=== PATIENT | male | born 1950 | race Hispanic/Latino ===

== ENCOUNTER → 2017-06-19 | Outpatient (CLI) | payer OTHER, MEDICARE | END | disposition home or self-care (01) | LOC: SHCH 10:25 | PROVIDERS: ATTEND Internal Medicine Cardiovascular Disease | DX: Z95.0 Presence of cardiac pacemaker (principal); I51.7 Cardiomegaly | CPT/HCPCS: 93306 ==

== ENCOUNTER 2017-12-25 07:30 | Day surgery (SDC) | payer OTHER, MEDICARE ==
[2017-12-21 11:30] VITALS: BP 96/61
[2017-12-21 11:36] LABS: BASOPHILS % (AUTO) 0.9 % (0.0-5.0); EOSINOPHILS % (AUTO) 4.2 % (0.0-8.0); HEMATOCRIT 37.1 % (42-54); LYMPHOCYTES % (AUTO) 11.6 % (21.0-51.0); MEAN CORPUSCULAR HEMOGLOBIN 27.9 pg (27.0-33.0); MEAN CORPUSCULAR HGB CONC 33.4 g/dL (32.0-36.0); MEAN CORPUSCULAR VOLUME 83.5 fL (79-99); MONOCYTES % (AUTO) 6.8 % (3.0-13.0); NEUTROPHILS % (AUTO) 76.5 % (40.0-77.0); NUCLEATED RED BLOOD CELLS 0.1 % (0.0-0.19); PLATELET COUNT (AUTO) 144 K/uL (130-400); RED BLOOD CELL COUNT(AUTO) 4.44 MIL/uL (4.50-6.20); RED CELL DISTRIBUTION WIDTH 16.8 % (11.0-15.5); WHITE BLOOD COUNT (AUTO) 7.4 K/uL (4.8-10.8)
[2017-12-21 11:43] LABS: CREATININE 1.7 mg/dL (0.5-1.5)
[2017-12-21 11:58] LABS: INR 2.44 (0.85-1.15); PARTIAL THROMBOPLASTIN TIME 39.5 SEC (26.3-35.5); PROTHROMBIN TIME 25.2 SEC (9.6-11.6)
[~2017-12-25] VITALS: Ht 172.7 cm; Wt 74.9 kg
[2017-12-25] VITALS (11 sets, daily range): BP systolic 96–115; BP diastolic 58–65
[~2017-12-25 07:30] MED LIST: AMLO10TA6 PO; CARV25TA PO; CEFAZOLIN SODIUM 1 GM VIAL IVP SCH; FOLI1TAB15 PO; FURO40TA5 PO; GLIP10TA9 PO; LISI2.5T2 PO; METF-444 PO; POTA10TA14 PO; SITA100T12 PO; WARF4TAB72 PO
[2017-12-25] MEDS ORDERED: SODIUM CHLORIDE 0.9% 1000ML 1,000 ML IV ONE (08:10)
[2017-12-25 08:30] LABS: INR 1.1 (0.85-1.15); PARTIAL THROMBOPLASTIN TIME 29.4 SEC (26.3-35.5); PROTHROMBIN TIME 11.5 SEC (9.6-11.6)
[2017-12-25] MEDS ORDERED: MEPERIDINE-PF 25 MG/ML SYG ONE ×3 (13:27→14:42)
[2017-12-25] MEDS ORDERED: MIDAZOLAM HCL 1 MG/ML 2ML VIAL ONE ×3 (13:27→14:42)
[2017-12-25] MEDS ORDERED: CEFAZOLIN SODIUM 1 GM VIAL ONE (13:27)
[2017-12-25] MEDS ORDERED: LIDOCAINE HCL 1% MDV 50ML VIAL ONE (13:27)
[2017-12-25] MEDS ORDERED: BUPIVACAINE/PF 0.25% 50ML VIAL IJ ONE (13:27)
[2017-12-25] MEDS ORDERED: ACETAMINOPHEN 325 MG TAB PO PRN ×2 (15:45)
[2017-12-25] MEDS ORDERED: ONDANSETRON HCL 4 MG/2 ML VIAL IV PRN (15:45)
[2017-12-25] MEDS ORDERED: DEXTROSE 50%-WATER 50 ML DISP.SYRIN IV PRN (15:45)
[2017-12-25] MEDS ORDERED: GLUCAGON 1MG KIT 1 MG ML IM PRN (15:45)
[2017-12-25] MEDS ORDERED: INSULIN HUMULIN R 100 UNIT/ML 3ML SQ SCH (16:30)
== END 2017-12-25 20:28 | disposition home or self-care (01) ==
LOC: DAH 07:30
PROVIDERS: ATTEND Internal Medicine Cardiovascular Disease
DX: Z45.02 Encounter for adjustment and management of automatic implantable cardiac defibrillator (principal); I25.10 Atherosclerotic heart disease of native coronary artery without angina pectoris; E78.5 Hyperlipidemia, unspecified; E11.22 Type 2 diabetes mellitus with diabetic chronic kidney disease; I12.9 Hypertensive chronic kidney disease with stage 1 through stage 4 chronic kidney disease, or unspecified chronic kidney disease; I25.2 Old myocardial infarction; E11.21 Type 2 diabetes mellitus with diabetic nephropathy; Z79.84 Long term (current) use of oral hypoglycemic drugs; Z79.899 Other long term (current) drug therapy; Z95.5 Presence of coronary angioplasty implant and graft; Z82.49 Family history of ischemic heart disease and other diseases of the circulatory system; I25.5 Ischemic cardiomyopathy
CPT/HCPCS: 33263; 36415 ×2; 80048; 82948 ×2; 85025; 85610 ×2; 85730 ×2; 93005; 99156; 99157; A4606; C1721; J0690; J2175 ×3; J2250 ×3; J3490 ×2; J7030; 33241